=== PATIENT | female | born 1990 | race Caucasian/White ===

== ENCOUNTER 2016-12-27 19:57 | Outpatient (CLI) | payer OTHER ==
[~2016-12-27] VITALS: Ht 167.6 cm; Wt 118.2 kg
[~2016-12-27 19:57] MED LIST: LEVO50TA83 PO
[2016-12-27 20:01] VITALS: Ht 167.6 cm; Wt 118.2 kg
[2016-12-27 20:17] VITALS: BP 114/56; PULSE 100; RESP 18
[2016-12-27 21:09] LABS: ADD SCAN DIFF NO
[2016-12-27 21:10] LABS: BASOPHILS % 0.2 % (0.0-2.0); EOSINOPHILS # 0.3 10^3/ul (0.0-0.5); EOSINOPHILS % 1.6 % (0.0-7.0); HEMATOCRIT 30.7 % (37.0-47.0); HEMOGLOBIN 10.2 g/dl (12.0-16.0); LYMPHOCYTES # 3.7 10^3/ul (0.8-2.9); LYMPHOCYTES % 20.5 % (15.0-51.0); MEAN CORPUSCULAR HEMOGLOBIN 28.6 pg (29.0-33.0); MEAN CORPUSCULAR HGB CONC 33.2 g/dl (32.0-37.0); MEAN PLATELET VOLUME 12.1 fl (7.4-10.4); MONOCYTE # 0.8 10^3/ul (0.3-0.9); MONOCYTES % 4.7 % (0.0-11.0); NEUTROPHILS % 72.3 % (39.0-77.0); PLATELET COUNT 217 10^3/UL (140-415); RED BLOOD COUNT 3.57 10^6/ul (4.20-5.40); RED CELL DISTRIBUTION WIDTH 14.6 % (11.5-14.5); WHITE BLOOD COUNT 17.9 10^3/ul (4.8-10.8)
--- NOTE | 2016-12-27 21:32 | PN ---
Date/Time of Note Date/Time of Note DATE: 12/27/16 TIME: 21:25 OB Subjective Subjective Subjective 26 yo P0 @ [id number], with PNC at an outside clinic, presents w one week of breast pain. She thought it was just on the right side, but now also feels it on the left. Patient did tell her OBGYN about the pain, but did not feel satisfied that it was examined. She also had a small amount of pink vaginal discahrge OB Objective Objective Objective 114/56,102,18,98.8 Abomen- gravid, n/t SVE- patient declined vaginal or speculum exam FH- 144 BPM HEENT: WNL OB Assessment/Plan Other Assessment: No breast abnormalities or erythema noted on exam; breasts are tender b/l. Patient is a size 38D bra when not . She had the pain mostly when she is trying to sleep and not wearing a bra Other plan: Will order breast u/s to r/o breast mass. If no mass, patient advised to go to a maternity store and find a more supportive bra If any masses noted, patient advised she will have to bring the report to her private OBGYN for further outpatient management will do CL on sono, as patient declined vaginal/cervical exam NUZHAT PÉREZ MD Dec 27, 2016 21:32
--- NOTE | 2016-12-27 22:06 | RADRPT ---
PROCEDURE: CERVICAL LENGTH ULTRASOUND CLINICAL INDICATION: Vaginal bleeding. TECHNIQUE: Trans-vaginal imaging of the cervical canal was performed utilizing graf-scale imaging. Sagittal and transverse images were obtained. Trans-abdominal images were also obtained. The adria ges were reviewed on a PACS workstation. COMPARISON: None. FINDINGS: There is a single live intrauterine . heart rate is 152 beats per minute. Position is breech/variable and placenta is posterior grade 1. There is no placenta previa. The cervix is closed with a length of 3.7 cm. IMPRESSION: 1. Cervical length is 3.7 cm. RPTAT: QQ .Arnulfo Orozco MD, MD Date Time Electronically viewed and signed by .Arnulfo Orozco MD, on 12/27/2016 22:06 .R/
--- NOTE | 2016-12-27 22:07 | RADRPT ---
PROCEDURE: Right breast ultrasound. CLINICAL INDICATION: Right breast pain. TECHNIQUE: High-resolution sonography of the right breast was performed in the axial and sagittal planes. COMPARISON: No prior study is available for comparison. FINDINGS: There is no cystic or solid mass. Normal breast parenchyma is present. IMPRESSION: 1. Normal right breast ultrasound. 2. Any further management regarding any breast symptoms should be based upon clinical grounds. RPTAT: QQ .Arnulfo Orozco MD, MD Date Time Electronically viewed and signed by .Arnulfo Orozco MD, MD on 12/27/2016 22:06 .R/
--- NOTE | 2016-12-27 23:17 | TRIAGE ---
OB Triage Datetime Report Generated by CPN: 12/27/2016 23:17 Datetime: 12/27/2016 22:52 Stage of : OB Triage Datetime: 12/27/2016 22:50 Stage of : OB Triage Datetime: 12/27/2016 21:40 Stage of : OB Triage Datetime: 12/27/2016 21:28 Stage of : OB Triage Datetime: 12/27/2016 20:45 Stage of : OB Triage Datetime: 12/27/2016 20:25 Stage of : OB Triage Datetime: 12/27/2016 20:22 EGA: 21.6 Datetime: 12/27/2016 20:21 Assessment Type: Triage Maternal Assessment Level of Consciousness: Fully Conscious DTR's/Clonus: DTRs 2+; No Clonus Headache: Denies Blurred Vision: No Respiratory Effort: Unlabored; Regular Rhythm; Equal Expansion Breath Sounds, Left: Clear and Equal Breath Sounds, Right: Clear and Equal Nausea/Vomiting: Denies RUQ Epigastric Pain: Denies Lower Extremities Edema: None Upper Extremities Edema: None Facial Edema: None Fall Risk Assessment History of Falling: (0) No Secondary Diagnosis: (0) No Ambulatory Aid: (0) Bedrest/Nurse Assist IV Therapy: (0) No Gait: (0) Normal/Bedrest/Immobile Mental Status: (0) Oriented to Own Ability Fall Score: 0 Fall Risk Score Definition: No Risk: No action required Datetime: 12/27/2016 20:20 Stage of : OB Triage Maternal Assessment Level of Consciousness: Fully Conscious DTR's/Clonus: DTRs 2+; No Clonus Headache: Denies Blurred Vision: No Respiratory Effort: Unlabored; Regular Rhythm; Equal Expansion Breath Sounds, Left: Clear and Equal Breath Sounds, Right: Clear and Equal Nausea/Vomiting: Denies RUQ Epigastric Pain: Denies Lower Extremities Edema: None Upper Extremities Edema: None Facial Edema: None Temperature Route: Oral Fall Risk Assessment History of Falling: (0) No Secondary Diagnosis: (0) No Ambulatory Aid: (0) Bedrest/Nurse Assist IV Therapy: (0) No Gait: (0) Normal/Bedrest/Immobile Mental Status: (0) Oriented to Own Ability Fall Score: 0 Fall Risk Score Definition: No Risk: No action required Heart Rate Monitor Mode: Doppler Pain Assessment Pain Scale: 10 Pain Presence: Constant Pain Type: Ache Pain Location: RIGHT BREAST Pain Goal: 2 Pain Relief Measures: Comfort Measures Datetime: 12/27/2016 20:18 Time of Arrival: 12/27/2016 19:50 Arrived By: Wheelchair Arrived From: Home Chief Complaint: PT C/O RIGHT BREAST PAIN 10/10 AND LARGE AMOUNT OF VAGINAL DISCHARGE Movement: Present Contractions: Denies/Absent Rupture of Membranes: Denies Vaginal Bleeding: None Vaginal Discharge: Present Recent Sexual Intercouse: Denies Abdominal Trauma: Not Applicable Patient Complaints: Other Time Provider Notified: 12/27/2016 20:15 Provider Notified: DR PÉREZ Initial Plan: INITIAL PHYSICAL ASSESSMENT
== END 2016-12-27 22:10 | disposition home or self-care (01) ==
LOC: OBT 19:57 → L-D 19:58 → OBT 22:10
PROVIDERS: ATTEND Obstetrics & Gynecology
DX: O26.892 Other specified pregnancy related conditions, second trimester (principal); N64.4 Mastodynia; N89.8 Other specified noninflammatory disorders of vagina; Z3A.21 21 weeks gestation of pregnancy
CPT/HCPCS: 59025; 76642; 76817; 85025; Z7500; G0463

== ENCOUNTER 2017-04-07 20:24 | Emergency (ER) | payer SELFPAY ==
[~2017-04-07] VITALS: Ht 167.6 cm; Wt 118.0 kg
[2017-04-07 20:34] VITALS: Ht 167.6 cm; Wt 118.0 kg
== END 2017-04-08 02:42 | disposition left against medical advice (07) ==
LOC: FTE 20:24 → E/R 04-08 02:42
DX: Z53.21 Procedure and treatment not carried out due to patient leaving prior to being seen by health care provider (principal)

== ENCOUNTER 2017-04-21 12:21 | Outpatient (CLI) | payer OTHER ==
[~2017-04-21] VITALS: Ht 167.6 cm; Wt 118.2 kg
[2017-04-21 12:39] VITALS: Ht 167.6 cm; Wt 118.2 kg
[2017-04-21 12:40] VITALS: BP 127/63; PULSE 107; RESP 20
--- NOTE | 2017-04-21 13:28 | RADRPT ---
PROCEDURE: US OB biophysical profile. CLINICAL INDICATION: decreased movements TECHNIQUE: Multiple sonographic images of the pelvis were obtained. The images were reviewed on a PACS workstation. COMPARISON: No prior studies are available for comparison. FINDINGS: There is a single viable intrauterine gestation. Cardiac activity is present with 150 beats per min carmela. There is a vertex presentation. The placenta is fundal. There is no evidence of placental abruption. There is a normal amount of amniotic fluid with an VICENTE = 8.9 cm. Biophysical profile: movement 2/2 tone 2/2. breathing 2/2 VICENTE 2/2 Total 04/22 RPTAT: AA . IMPRESSION: Normal biophysical profile. . .Anthony Byrnes MD, MD Date Time Electronically viewed and signed by .Anthony Byrnes MD, MD on 04/21/2017 13:28 .S/
--- NOTE | 2017-04-21 16:33 | QN ---
Documentation Comment g1 iup 35 weeks DFM vss us wnl nst reacitve a/p iup 35 weeks dfm resolved dc home KELLY FONTAINE MD Apr 21, 2017 16:33
== END 2017-04-21 16:15 | disposition home or self-care (01) ==
LOC: OBT 12:21 → L-D 12:21 → OBG 12:27 → OBT 16:15
PROVIDERS: ATTEND Obstetrics & Gynecology
DX: O36.8130 Decreased fetal movements, third trimester, not applicable or unspecified (principal); Z3A.35 35 weeks gestation of pregnancy
CPT/HCPCS: 76818; Z7500; G0463

== ENCOUNTER 2017-05-11 14:12 | Inpatient (IN) | payer OTHER ==
[~2017-05-11] VITALS: Ht 167.6 cm; Wt 121.2 kg
[2017-05-11 14:29] VITALS: Ht 167.6 cm; Wt 121.2 kg
[2017-05-11] MEDS ORDERED: LACTATED RINGER'S 1,000 ML IV PRN (15:14)
[2017-05-11] MEDS: LACTATED RINGER'S 1,000 ML IV SCH ×2 (15:30→23:00)
[2017-05-11] MEDS ORDERED: OXYTOCIN 30 UNITS/LR 500 ML IV PRN (15:30)
[2017-05-11] MEDS ORDERED: METHYLERGONOVINE 0.2 MG INJ IM PRN (15:30)
[2017-05-11] MEDS ORDERED: BUTORPHANOL 2 MG INJ IV PRN (15:30)
[2017-05-11] MEDS ORDERED: MISOPROSTOL 200 MCG TAB PR PRN (15:30)
[2017-05-11] MEDS ORDERED: CARBOPROST 250 MCG INJ IM PRN (15:30)
[2017-05-11] MEDS ORDERED: OXYTOCIN 30 UNITS/LR 500 ML IV SCH ×2 (15:30)
[2017-05-11] MEDS ORDERED: IBUPROFEN 600 MG TAB PO PRN (15:30)
[2017-05-11] MEDS ORDERED: LIDOCAINE 1% (MPF) 30 ML INJ INJ PRN (15:30)
--- NOTE | 2017-05-11 15:36 | TRIAGE ---
OB Triage Datetime Report Generated by CPN: 05/11/2017 15:35 Datetime: 05/11/2017 15:34 Assessment Type: Admission Assessment Vaginal Bleeding: None Maternal Assessment Level of Consciousness: Fully Conscious DTR's/Clonus: DTRs 2+; No Clonus Headache: Denies Blurred Vision: No Respiratory Effort: Unlabored; Regular Rhythm; Equal Expansion Breath Sounds, Left: Clear and Equal Breath Sounds, Right: Clear and Equal Nausea/Vomiting: Denies RUQ Epigastric Pain: Denies Facial Edema: None Fall Risk Assessment History of Falling: (0) No Secondary Diagnosis: (0) No Ambulatory Aid: (0) Bedrest/Nurse Assist IV Therapy: (0) No Gait: (0) Normal/Bedrest/Immobile Mental Status: (0) Oriented to Own Ability Datetime: 05/11/2017 14:25 Heart Rate FHR Baseline Rate: 150 Monitor Mode: External US FHR Baseline Changes: No Baseline Change Variability: Minimal - Undetectable to <=5 bpm Accelerations: 15X15 Decelerations: Late Category: Category II Datetime: 05/11/2017 14:20 Assessment Type: Triage Maternal Assessment Level of Consciousness: Fully Conscious DTR's/Clonus: DTRs 2+; No Clonus Headache: Denies Blurred Vision: No Respiratory Effort: Unlabored; Regular Rhythm; Equal Expansion Breath Sounds, Left: Clear and Equal Breath Sounds, Right: Clear and Equal Nausea/Vomiting: Denies RUQ Epigastric Pain: Denies Lower Extremities Edema: Bilateral Lower Extremities Degree: 1+ Upper Extremities Edema: Bilateral Upper Extremities Degree: 1+ Facial Edema: None Fall Risk Assessment History of Falling: (0) No Secondary Diagnosis: (0) No Ambulatory Aid: (0) Bedrest/Nurse Assist IV Therapy: (0) No Gait: (0) Normal/Bedrest/Immobile Mental Status: (0) Oriented to Own Ability Fall Score: 0 Fall Risk Score Definition: No Risk: No action required Datetime: 05/11/2017 14:13 Stage of : OB Triage Temperature Route: Oral Datetime: 04/21/2017 16:18 Time of Arrival: 05/11/2017 14:00 EGA: 38.5 Arrived By: Ambulatory Arrived From: Home Chief Complaint: Spotting, UC Movement: Present Contractions: Occasional Rupture of Membranes: Unsure Vaginal Bleeding: Normal Show Vaginal Discharge: Present Recent Sexual Intercouse: Denies Abdominal Trauma: Not Applicable Patient Complaints: Other Time Provider Notified: 05/11/2017 14:19 Provider Notified: Shamsian Initial Plan: NST, BPP/VICENTE, ROM + Datetime: 04/21/2017 14:07 Pain Assessment Pain Presence: None/Denies Datetime: 04/21/2017 13:26 Comments: pt. acknowledges increased movements Datetime: 04/21/2017 13:24 Monitor Mode: Palpation Quality: Mild Contraction Comments: pt. denies Datetime: 04/21/2017 13:13 Comments: u.s. at bedside Datetime: 04/21/2017 13:12 Heart Rate FHR Baseline Rate: 135 Monitor Mode: External US Variability: Moderate 6-25 bpm Accelerations: 15X15 Decelerations: None Category: Category I Datetime: 04/21/2017 12:53 Labor Evaluation Frequency: occassional Resting Tone Odum: Relaxed Contraction Comments: pt. denies Heart Rate FHR Baseline Rate: 145 Monitor Mode: External US Variability: Moderate 6-25 bpm Accelerations: 15X15 Decelerations: None Category: Category I Datetime: 04/21/2017 12:51 Comments: pt. acknowledges increased movement Datetime: 04/21/2017 12:37 Assessment Type: Triage Maternal Assessment Level of Consciousness: Fully Conscious DTR's/Clonus: DTRs 2+; No Clonus Headache: Denies Blurred Vision: No Respiratory Effort: Unlabored; Regular Rhythm; Equal Expansion Breath Sounds, Left: Clear and Equal Breath Sounds, Right: Clear and Equal Nausea/Vomiting: Denies RUQ Epigastric Pain: Denies Lower Extremities Edema: None Upper Extremities Edema: None Facial Edema: None Fall Risk Assessment History of Falling: (0) No Secondary Diagnosis: (0) No Ambulatory Aid: (0) Bedrest/Nurse Assist IV Therapy: (0) No Gait: (0) Normal/Bedrest/Immobile Mental Status: (0) Oriented to Own Ability Fall Score: 0 Fall Risk Score Definition: No Risk: No action required Datetime: 04/21/2017 12:36 Time of Arrival: 04/21/2017 12:30 EGA: 35.6 Arrived By: Ambulatory Arrived From: Dr. Chaidez Chief Complaint: pt. sent from md office for decreased movement sincwe yesterday. pt. since being on monitor acknowledges increase in movement Movement: Decreased Contractions: Denies/Absent Rupture of Membranes: Denies Vaginal Bleeding: None Vaginal Discharge: Denies Recent Sexual Intercouse: Denies Abdominal Trauma: Not Applicable Patient Complaints: None Time Provider Notified: 04/21/2017 13:00 Provider Notified: [facility] Initial Plan: nst/bpp Datetime: 04/21/2017 12:35 Pain Assessment Pain Presence: None/Denies Datetime: 12/27/2016 23:18 Time of Arrival: 04/21/2017 12:30 EGA: 35.6 Arrived By: Ambulatory Arrived From: Office Chief Complaint: decreased movement since yesterday. pt. since on the monitor acknowledges i ncreased movement Movement: Decreased Contractions: Denies/Absent Rupture of Membranes: Denies Vaginal Bleeding: None Vaginal Discharge: Denies Recent Sexual Intercouse: Denies Abdominal Trauma: Not Applicable Patient Complaints: Contractions Additional Patient Complaints: pt. from md office w/ orders for nst/bpp Provider Notified: merlin Datetime: 12/27/2016 20:22 EGA: 19.3 Datetime: 12/27/2016 20:21 Fall Score: 0 Fall Risk Score Definition: No Risk: No action required Datetime: 12/27/2016 20:20 Fall Score: 0 Fall Risk Score Definition: No Risk: No action required
[2017-05-11 15:49] LABS: BASOPHIL # 0.1 10^3/ul (0.0-0.1); BASOPHILS % 0.3 % (0.0-2.0); EOSINOPHILS # 0.1 10^3/ul (0.0-0.5); EOSINOPHILS % 0.7 % (0.0-7.0); HEMATOCRIT 35.4 % (37.0-47.0); LYMPHOCYTES # 2.5 10^3/ul (0.8-2.9); LYMPHOCYTES % 15.1 % (15.0-51.0); MEAN CORPUSCULAR HGB CONC 33.9 g/dl (32.0-37.0); MEAN CORPUSCULAR VOLUME 82.7 fl (82.0-101.0); MEAN PLATELET VOLUME 11.9 fl (7.4-10.4); PLATELET COUNT 225 10^3/UL (140-415); RED BLOOD COUNT 4.28 10^6/ul (4.20-5.40); RED CELL DISTRIBUTION WIDTH 15.4 % (11.5-14.5); WHITE BLOOD COUNT 16.6 10^3/ul (4.8-10.8)
--- NOTE | 2017-05-11 16:18 | RADRPT ---
PROCEDURE: US biophysical profile. CLINICAL INDICATION: Vaginal bleeding. TECHNIQUE: Multiple sonographic images of the uterus were obtained. The images were revi ewed on a PACS workstation. COMPARISON: 04/21/2017. FINDINGS: There is a single live intrauterine gestation. heart rate is 144 beats per minute. Position is cephalic and placenta is anterior with no abruption or previa. The VICENTE is 7.1 cm. (Normal = 5-20 cm.) Breathing Movement: 2 Gross Body Movement: 2 Tone: 2 Qualitative Amniotic Fluid Volume: 2 TOTAL: 8 IMPRESSION: 1. The biophysical score is 8/8. RPTAT: QQ .Arnulfo Orozco MD, Date Time Electronically viewed and signed by .Arnulfo Orozco MD, on 05/11/2017 16:18 .R/
--- NOTE | 2017-05-11 16:24 | RADRPT ---
PROCEDURE: US OB. CLINICAL INDICATION: labor TECHNIQUE: Multiple sonographic images of the pelvis were obtained. The images were reviewed on a PACS workstation. COMPARISON: May 09, 2017 FINDINGS: The cervix is not well seen. There is a single viable intrauterine gestation. Cardiac activity is present with 137 beats per min carmela. There is a vertex presentation. Measurements were made in order to determine age. The results are as follows: BPD = 9.49 cm HC = 34.11 cm AC = 34.63 cm FL = 6.94 cm. Estimated gestational age of approximately 38 weeks 0 days. The estimated date of delivery is May 25, 2017. The EFW = 3361 g plus or minus 504 g or 7 pounds 7 ounces. This is in the 48th percentile . No anatomic abnormality is visualized. The placenta is anterior. There is no evidence for an abruption or placenta previa. There is a normal amount of amniotic fluid with an VICENTE = 7.12 cm. The biophysical profile score is 8/8. There are no adnexal masses. IMPRESSION: Single viable intrauterine gestation of approximately 38 weeks. The estimated date of delivery is 2016. No acute abnormality is seen. RPTAT: EE .Amanda Bai MD, Date Time Electronically viewed and signed by .Amanda Bai MD, on 05/11/2017 16:24 .F/
[2017-05-11 16:49] LABS: INR 0.93; PROTIME 12.5 Sec (12.2-14.2)
[2017-05-11 16:50] LABS: PARTIAL THROMBOPLASTIN TIME 28.4 Sec (25.0-35.0)
[2017-05-11] MEDS ORDERED: FENTAnyl 2MCG/ML-ROPIV 0.2% 100 ML ONE (18:43)
--- NOTE | 2017-05-11 18:48 | HP ---
Date/Time of Note Date/Time of Note DATE: 05/11/17 TIME: 18:47 OB - History Hx of Present Free Text/Dictation pt co of ucx : 1 Para: 0 Care: Good Care Ultrasounds: Normal mid trimester US Past Family/Social History * Past Medical, Surgical, Family and Obstetric Histories reviewed from chart. OB Admission Exam Physical Exam HEENT: WNL Heart: Rhythm Normal Abdomen: WNL Extremities: Normal Reflexes: Normal Cervical Dilatation: 3cm Last 72 hours Lab Results CBC & BMP 05/11/17 15:28 OB Assessment/Plan Reason for admission: active labor Other Assessment: pt with cat II tracing at times with variable decesl early labor Plan: Expectant Management KELLY FONTAINE MD May 11, 2017 18:48
[2017-05-12] MEDS ORDERED: FENTAnyl 2MCG/ML-ROPIV 0.2% 100 ML ONE (02:25)
[2017-05-12] MEDS ORDERED: ONDANSETRON 4 MG INJ IV PRN ×2 (03:00→18:00)
[2017-05-12] MEDS ORDERED: DIPHENHYDRAMINE 50 MG INJ IV PRN (03:00)
[2017-05-12] MEDS ORDERED: NALOXONE (0.4 MG/ML) INJ IV PRN (03:00)
[2017-05-12] MEDS: FENTAnyl 2MCG/ML-ROPIV 0.2% 100 ML BAG EPI SCH ×2 (04:36→10:59)
[2017-05-12] MEDS: LACTATED RINGER'S 1,000 ML IV SCH ×3 (06:25→23:14)
[2017-05-12] MEDS: LEVOTHYROXINE 50 MCG TAB PO SCH (07:00)
[2017-05-12] MEDS ORDERED: AMPICILLIN 2 GM/NS (PMX) 100 ML ONE (09:56)
[2017-05-12] MEDS ORDERED: AZITHROMYCIN 500 MG in SOD CHLORIDE 0.9% 250 ML IVPB ONE (10:00)
[2017-05-12] MEDS ORDERED: AMPICILLIN 2 GM/NS (PMX) 100 ML IVPB ONE (10:00)
[2017-05-12] MEDS ORDERED: ACETAMINOPHEN 325 MG TAB PO ONE (10:30)
[2017-05-12] MEDS ORDERED: IBUPROFEN 600 MG TAB PO ONE (11:30)
[2017-05-12] MEDS ORDERED: MINERAL OIL LIGHT 10 ML VIAL TOP ONE (11:30)
[2017-05-12 12:48] LABS: ADD UMIC YES; UR AMORPHOUS CRYSTAL FEW /HPF (NONE SEEN); UR ASCORBIC ACID NEGATIVE (NEGATIVE); UR BACTERIA FEW /HPF (NONE SEEN); UR BILIRUBIN (Dip) NEGATIVE (NEGATIVE); UR BLOOD (Dip) 2+ mg/dL (NEGATIVE); UR CLARITY SLIGHTLY CLOUDY (CLEAR); UR COLOR AMBER (YELLOW); UR GLUCOSE (Dip) NEGATIVE (NEGATIVE); UR KETONES (Dip) NEGATIVE (NEGATIVE); UR LEUKOCYTE ESTERASE (Dip) 2+ Leu/ul (NEGATIVE); UR MUCUS FEW /HPF (NONE SEEN); UR NITRITE (Dip) NEGATIVE (NEGATIVE); UR RBC 171 /HPF (0-5); UR SPECIFIC GRAVITY (Dip) 1.023 (1.003-1.030); UR TOTAL PROTEIN (Dip) 2+ mg/dl (NEGATIVE); UR UROBILINOGEN (Dip) NEGATIVE (NEGATIVE)
[2017-05-12] MEDS ORDERED: AMPICILLIN 1 GM/NS (PMX) 50 ML IVPB SCH (13:00)
--- NOTE | 2017-05-12 15:08 | LDN ---
Date/Time of Note Date/Time of Note DATE: 05/12/17 TIME: 15:03 Delivery Summary of baby girl from oa position .placenta spontaneous expulsion, inspected complete Weeks of Gestation 38/weeks 5 days Placenta Delivered: Spontaneously Meconium: Light, Thick Episiotomy: No Laceration repair: first degree repaired with 3/0 cc Anesthesia type: Epidural Estimated blood loss: 200 Sponge & Needle done & correct: Yes All needle counts correct: Yes Any foreign bodies felt in the: No Problems: Infant Delivery Information Sex Sex: female Apgars 1 Minute: 7 5 Minute: 9 Suctioning Nose & mouth suctioned at jeaneth: Yes Delee suction performed: No Umbilical Cord Umbilical cord with: 3 Vessels Cord presentations: nuchal cord Nuchal cord present X: 1 Cord Blood was obtained: Yes DENISE CALIXTO MD May 12, 2017 15:08
[2017-05-12 17:40] VITALS: BP 119/63; PULSE 105; RESP 19
[2017-05-12] MEDS ORDERED: OXYCODONE/ASPIRIN (4.88/325) TAB PO PRN ×2 (18:00)
[2017-05-12] MEDS ORDERED: DIBUCAINE 1% 30 GM OINT PR PRN (18:00)
[2017-05-12] MEDS ORDERED: ACETAMINOPHEN 325 MG TAB PO PRN (18:00)
[2017-05-12] MEDS ORDERED: HYDROCODONE/APAP (5/325) TAB PO PRN ×2 (18:00)
[2017-05-12] MEDS: IBUPROFEN 600 MG TAB PO SCH ×2 (18:00→23:50)
[2017-05-12] MEDS ORDERED: LANOLIN 7 GM TUBE TOP PRN (18:00)
[2017-05-12] MEDS: WITCH HAZEL/GLYCERIN PAD PR PRN (18:14)
[2017-05-12] MEDS: BENZOCAINE 20% 56 ML SPRAY TOP PRN (18:15)
[2017-05-12] MEDS: OXYTOCIN 30 UNITS/LR 500 ML IV SCH ×2 (19:26→21:31)
[2017-05-12 20:05] VITALS: BP 112/58; PULSE 100; RESP 19
[2017-05-12 23:59] VITALS: BP 120/58; PULSE 100; RESP 20
[2017-05-13 03:50] VITALS: BP 110/63; PULSE 70; RESP 17
[2017-05-13] MEDS: IBUPROFEN 600 MG TAB PO SCH ×3 (05:51→18:05)
[2017-05-13] MEDS: LACTATED RINGER'S 1,000 ML IV SCH ×3 (07:00→15:14)
[2017-05-13 09:13] VITALS: BP 95/50; PULSE 98; RESP 19
[2017-05-13] MEDS: LEVOTHYROXINE 50 MCG TAB PO SCH (09:16)
[2017-05-13] MEDS: SENNA/DOCUSATE NA (8.6MG/50MG) TAB PO SCH (09:16)
[2017-05-13 10:14] LABS: ABNORMAL IP MESSAGE 1; HEMATOCRIT 33.3 % (37.0-47.0); HEMOGLOBIN 10.8 g/dl (12.0-16.0); MEAN CORPUSCULAR HEMOGLOBIN 27.7 pg (29.0-33.0); MEAN CORPUSCULAR HGB CONC 32.4 g/dl (32.0-37.0); MEAN CORPUSCULAR VOLUME 85.4 fl (82.0-101.0); MEAN PLATELET VOLUME 12.3 fl (7.4-10.4); PLATELET COUNT 223 10^3/UL (140-415); RED CELL DISTRIBUTION WIDTH 15.9 % (11.5-14.5); WHITE BLOOD COUNT 43.3 10^3/ul (4.8-10.8)
--- NOTE | 2017-05-13 10:22 | PN ---
Date/Time of Note Date/Time of Note DATE: 05/13/17 TIME: 10:20 OB Subjective Subjective Subjective Post normal vaginal delivery day 1 Afebrile Vital signs are stable Abdomen soft Uterus firm Lochia normal Extremity normal Ambulation encouraged OB Assessment/Plan Plan: Expectant Management DENISE CALIXTO MD May 13, 2017 10:22
[2017-05-13 11:47] VITALS: BP 95/52; PULSE 97; RESP 18
[2017-05-13 11:48] LABS: BASOPHIL # 0.4 10^3/ul (0.0-0.1); LYMPHOCYTES # 0.9 10^3/ul (0.8-2.9); MONOCYTE # 0.4 10^3/ul (0.3-0.9); MONOCYTES % (M) 1 % (0-11)
[2017-05-13 16:21] VITALS: BP 96/50; PULSE 102; RESP 19
[2017-05-13 19:06] LABS: ABNORMAL IP MESSAGE 1; HEMATOCRIT 28.6 % (37.0-47.0); HEMOGLOBIN 9.5 g/dl (12.0-16.0); MEAN CORPUSCULAR HEMOGLOBIN 28.3 pg (29.0-33.0); MEAN CORPUSCULAR HGB CONC 33.2 g/dl (32.0-37.0); MEAN CORPUSCULAR VOLUME 85.1 fl (82.0-101.0); MEAN PLATELET VOLUME 12.3 fl (7.4-10.4); PLATELET COUNT 189 10^3/UL (140-415); RED BLOOD COUNT 3.36 10^6/ul (4.20-5.40); RED CELL DISTRIBUTION WIDTH 15.9 % (11.5-14.5); WHITE BLOOD COUNT 34.5 10^3/ul (4.8-10.8)
[2017-05-13 19:09] LABS: POSITIVE DIFF @See below
[2017-05-13 19:45] VITALS: BP 91/55; PULSE 106; RESP 18
[2017-05-13 19:48] LABS: LYMPHOCYTES # 3.1 10^3/ul (0.8-2.9); MONOCYTE # 0.3 10^3/ul (0.3-0.9); MONOCYTES % (M) 1 % (0-11)
[2017-05-13] MEDS ORDERED: CEFTRIAXONE 1 GM/50 ML (PMX) 50 ML IVPB ONE (20:00)
[2017-05-14] MEDS: WITCH HAZEL/GLYCERIN PAD PR PRN (00:15)
[2017-05-14] MEDS: IBUPROFEN 600 MG TAB PO SCH ×4 (00:15→17:29)
[2017-05-14] MEDS: SENNA/DOCUSATE NA (8.6MG/50MG) TAB PO SCH ×3 (00:15→21:00)
[2017-05-14] MEDS: BENZOCAINE 20% 56 ML SPRAY TOP PRN (00:15)
[2017-05-14 03:55] VITALS: BP 95/54; PULSE 99; RESP 18
[2017-05-14] MEDS: LACTATED RINGER'S 1,000 ML IV SCH ×2 (07:14→15:14)
[2017-05-14 08:15] VITALS: BP 96/53; PULSE 85; RESP 16
[2017-05-14] MEDS: LEVOTHYROXINE 50 MCG TAB PO SCH (08:33)
[2017-05-14] MEDS ORDERED: MEASLES,MUMPS,RUBELLA VACCINE INJ SC* ONE (09:00)
--- NOTE | 2017-05-14 09:53 | PN ---
Date/Time of Note Date/Time of Note DATE: 05/14/17 TIME: 09:39 OB Subjective Subjective Subjective She has been afebrile during the last 2 days of denies frequency , dysuria , back pain or abdominal pain, her WBC [place] 43,000 [place] [address]286. This morning WBC not available Yet\, urine culture report K pneumonia sensitive to Macrobid&Bactrim, Discharge plan pending labs result DENISE CALIXTO MD May 14, 2017 09:50
[2017-05-14 10:00] LABS: ABNORMAL IP MESSAGE 1; HEMATOCRIT 29.7 % (37.0-47.0); HEMOGLOBIN 9.7 g/dl (12.0-16.0); MEAN CORPUSCULAR HEMOGLOBIN 27.9 pg (29.0-33.0); MEAN CORPUSCULAR HGB CONC 32.7 g/dl (32.0-37.0); MEAN CORPUSCULAR VOLUME 85.3 fl (82.0-101.0); MEAN PLATELET VOLUME 12.1 fl (7.4-10.4); PLATELET COUNT 212 10^3/UL (140-415); RED BLOOD COUNT 3.48 10^6/ul (4.20-5.40); RED CELL DISTRIBUTION WIDTH 16.2 % (11.5-14.5)
[2017-05-14 11:40] LABS: POSITIVE DIFF @See below
[2017-05-14 13:36] LABS: ANISOCYTOSIS 1+ (0-0); GIANT THROMBO% (M) 1 % (0-0); MONOCYTES % (M) 4 % (0-11); PLATELET ESTIMATE NORMAL; POLYCHROMASIA 1+ (0-0)
[2017-05-14 16:00] VITALS: BP 95/50; PULSE 86; RESP 16
[2017-05-14 20:20] VITALS: BP 108/60; PULSE 90; RESP 18
[2017-05-14] MEDS ORDERED: CEFTRIAXONE 1 GM/50 ML (PMX) 50 ML IVPB SCH (21:00)
[2017-05-14] MEDS: NITROFURANTOIN (SR) 100 MG CAP PO SCH (21:00)
[2017-05-15] MEDS: IBUPROFEN 600 MG TAB PO SCH ×3 (02:35→12:20)
[2017-05-15 04:30] VITALS: PULSE 8; RESP 18
[2017-05-15] MEDS: LEVOTHYROXINE 50 MCG TAB PO SCH (07:06)
[2017-05-15 07:30] VITALS: BP 106/58; PULSE 80; RESP 20
[2017-05-15] MEDS: SENNA/DOCUSATE NA (8.6MG/50MG) TAB PO SCH (09:58)
[2017-05-15] MEDS: NITROFURANTOIN (SR) 100 MG CAP PO SCH (09:58)
[2017-05-15 10:46] LABS: BASOPHIL # 0.1 10^3/ul (0.0-0.1); BASOPHILS % 0.3 % (0.0-2.0); EOSINOPHILS # 0.2 10^3/ul (0.0-0.5); EOSINOPHILS % 1.4 % (0.0-7.0); HEMATOCRIT 30.2 % (37.0-47.0); LYMPHOCYTES # 2.1 10^3/ul (0.8-2.9); LYMPHOCYTES % 12.8 % (15.0-51.0); MEAN CORPUSCULAR HEMOGLOBIN 28.2 pg (29.0-33.0); MEAN CORPUSCULAR HGB CONC 33.1 g/dl (32.0-37.0); MEAN CORPUSCULAR VOLUME 85.1 fl (82.0-101.0); MEAN PLATELET VOLUME 11.8 fl (7.4-10.4); MONOCYTE # 0.6 10^3/ul (0.3-0.9); MONOCYTES % 3.9 % (0.0-11.0); NEUTROPHILS % 79.8 % (39.0-77.0); PLATELET COUNT 241 10^3/UL (140-415); RED BLOOD COUNT 3.55 10^6/ul (4.20-5.40); RED CELL DISTRIBUTION WIDTH 15.9 % (11.5-14.5)
[2017-05-15 11:30] VITALS: BP 110/62; PULSE 80; RESP 18
--- NOTE | 2017-05-15 13:21 | PD.PPDC ---
PROGRAM PRODUCTION SPECIALIST Discharge Instruction Condition Patient Condition: Good Diet Diet: Resume Regular Diet Activity/Restrictions Activity: Normal Activity May Shower Restrictions: No Exercising No Lifting No Driving No Sexual Activity Nothing in the Vagina No [place] No Tampons, douche Follow-up Follow-up with Physician: 1, Week/Weeks Provider Information: This patient had normal vaginal delivery on May 12 her has been uneventful good recovery denies any pain or discomfort lochia moderate extremity normal no complaint of dysuria or frequency however her urine culture was positive for Klebsiella pneumonia which was sensitive to nitrofurantoin she is being discharged with a prescription of Macrobid 1 tablet 2 times daily for 10 days also recommended to make appointment to be seen at the office in 1 week for any other complication or problem come to the emergency room of [facility] Return to clinic for CHERRY GROWER Instructions: Fever greater than 101 Chills Worsening abdominal pain Excessive Vaginal Bleeding More than 2 pads per hour Unable to tolerate diet OB Instructions: Breast Tenderness Depression Blurried Vision Headache DENISE CALIXTO MD May 15, 2017 13:21
--- NOTE | 2017-05-15 13:29 | DS ---
Date/Time of Note Date/Time of Note DATE: 05/15/17 TIME: 13:23 Discharge Summary Admission/Discharge Info Admit Date/Time May 11, 2017 at 14:40 Discharge Date/Time May 15, 2017 at 1320 Patient Condition: Good Procedures Normal vaginal delivery Hx of Present Illness Term in labor Hospital Course Satisfactory recovery post normal vaginal delivery patient had very high white BC which gradually down from 43,000-16,000 urine culture positive for Klebsiella pneumonia sensitive to nitro Furadantin, she has been afebrile during the entire course of and denies any lower abdominal back pain , dysuria frequency in urination. Home Meds Reported Medications Levothyroxine Sodium* (Synthroid*) 50 Mcg Tablet, 50 MCG PO BEFORE BREAKFAST, # 30 TAB 10/20/15 Follow-up Plan Advised to continue taking Macrobid 1 tablet twice daily for 10 day make an appointment to the clinic in 1 week Primary Care Provider Not On Staff Doctor Time spent on discharge: < 30 minutes Pending Labs Laboratory Tests Test 05/15/17 10:10 White Blood Count 16.010^3/ul (4.8-10.8) Red Blood Count 3.5510^6/ul (4.20-5.40) Hemoglobin 10.0g/dl (12.0-16.0) Hematocrit 30.2% (37.0-47.0) Mean Corpuscular Volume 85.1fl (82.0-101.0) Mean Corpuscular Hemoglobin 28.2pg (29.0-33.0) Mean Corpuscular Hemoglobin Concent 33.1g/dl (32.0-37.0) Red Cell Distribution Width 15.9% (11.5-14.5) Platelet Count 84380^3/UL (140-415) Mean Platelet Volume 11.8fl (7.4-10.4) Neutrophils % 79.8% (39.0-77.0) Lymphocytes % 12.8% (15.0-51.0) Monocytes % 3.9% (0.0-11.0) Eosinophils % 1.4% (0.0-7.0) Basophils % 0.3% (0.0-2.0) Nucleated Red Blood Cells % 0.0/100WBC (0.0-0.0) Neutrophils # (Manual) 12.810^3/ul (1.7-7.5) Lymphocytes # 2.110^3/ul (0.8-2.9) Monocytes # 0.610^3/ul (0.3-0.9) Eosinophils # 0.210^3/ul (0.0-0.5) Basophils # 0.110^3/ul (0.0-0.1) Nucleated Red Blood Cells # 0.010^3/ul (0.0-0.0) DENISE CALIXTO MD May 15, 2017 13:29
== END 2017-05-15 15:00 | disposition home or self-care (01) | DRG 775 ==
LOC: L-D 14:12 → OBT 14:12 → L-D 14:40 → OBT 14:40 → PP1 05-12 17:19
PROVIDERS: ADMIT Obstetrics & Gynecology; ATTEND Obstetrics & Gynecology
PROC: 10E0XZZ Delivery of Products of Conception, External Approach (ICD-10-PCS; principal; 2017-05-11)
PROC: 0HQ9XZZ Repair Perineum Skin, External Approach (ICD-10-PCS; 2017-05-11)
DX: O36.8130 Decreased fetal movements, third trimester, not applicable or unspecified (principal); O86.20 Urinary tract infection following delivery, unspecified; B96.1 Klebsiella pneumoniae [K. pneumoniae] as the cause of diseases classified elsewhere; Z37.0 Single live birth; Z3A.38 38 weeks gestation of pregnancy; O70.0 First degree perineal laceration during delivery
CPT/HCPCS: 62319; 76815; 76818; 81001; 84112; 85025; 85610; 85730; 86592; 86850; 86885; 86900; 86901; 87040; 87086; 87340; 88307; 99464; G0463; J0290; J0456; J0696; J2405; J2590; J2790; J3010; J7050; J7120